=== PATIENT | female | born 1940 | race American Indian/Alaskan Native ===

== ENCOUNTER 2017-02-26 13:07 | Outpatient (CLI) | payer MEDICARE ==
--- NOTE | 2017-02-26 14:09 | XRay Report ---
Right shoulder 3 views: History: Pain. Findings: Generalized osteopenia. Mild arthritic changes of the a.c. joint and glenohumeral joint. No fracture dislocation or soft tissue calcification. Impression: Mild arthritic changes a.c. joint and glenohumeral joint.
== END 2017-02-26 13:08 | disposition home or self-care (01) ==
LOC: SPVIMAG 13:07
PROVIDERS: ATTEND Orthopaedic Surgery Sports Medicine
DX: M19.011 Primary osteoarthritis, right shoulder (principal); M85.88 Other specified disorders of bone density and structure, other site; M85.812 Other specified disorders of bone density and structure, left shoulder

== ENCOUNTER 2017-04-15 09:28 | Outpatient (CLI) | payer MEDICARE ==
--- NOTE | 2017-04-15 11:55 | Mammography Report ---
BILATERAL MAMMOGRAM: FINDINGS: The breast tissue is heterogeneously dense, which could obscure detection of small masses (approximately 50%-75% glandular). No mass, distortion, suspicious calcification, or skin change is seen. No significant change when compared to exams dating back to 2015. CAD was utilized. IMPRESSION: Negative mammogram. There is no mammographic evidence of malignancy. RECOMMENDATION: Follow-up per ACS guidelines. BI-RADS CATEGORY: 1 = Negative ACR BI-RADS MAMMOGRAPHIC CODES: 0 = Needs additional imaging evaluation; 1 = Negative; 2 = Benign; 3 = Probably benign; 4 = Suspicious; 5 = Malignant; 6 = Known biopsy-proven malignancy COMMENT: 1. Dense breast tissue, i.e., adenosis, fibrocystic changes, etc., may obscure an underlying neoplasm. 2. Approximately 10% of cancers are not detected with mammography. 3. A negative mammography report should not delay biopsy if a clinically suspicious mass is present. COMMENT: Patient follow-up letters are generated in [employer].
== END 2017-04-15 09:29 | disposition home or self-care (01) ==
LOC: MAMMO 09:28
PROVIDERS: ATTEND Family Medicine
DX: Z12.31 Encounter for screening mammogram for malignant neoplasm of breast (principal)
CPT/HCPCS: 77067; G0202

== ENCOUNTER 2017-05-31 09:30 | Outpatient (CLI) | payer MEDICARE ==
--- NOTE | 2017-06-03 08:17 | Magnetic Resonance Report ---
MRI UPPER EXTREMITY JOINT RIGHT WITHOUT CONTRAST HISTORY: Right shoulder pain and weakness. TECHNIQUE: Multisequence, multiplanar MRI with and without fat suppression was performed through the right shoulder. COMPARISON: Right shoulder films dated 02/26/17 FINDINGS: The horizontal segment of the long head of the biceps tendon demonstrates abnormal thickening and increased intrinsic signal. The tendon remains attached to the superior labrum with no evidence of SLAP lesion. A severe tendinosis or possibly a longitudinal tear is suspected. There is also suggestion of a tiny full-thickness tear in the distal anterior supraspinatus tendon at its attachment site on the proximal humerus. This appears to involve the rotator cuff interval. The remainder of the supraspinatus tendon is within normal limits. The infraspinatus, teres minor and subscapularis tendons are within normal limits. No gross labral defect. Mild to moderate osteoarthritic changes are identified at the glenohumeral joint and a.c. joint. A moderate acromial spur is identified. There is a small joint effusion and moderate fluid in the subacromial bursa, subdeltoid bursa and subscapular recess. The bone marrow signal is within normal limits. IMPRESSION: Severe tendinosis versus partial tear of the horizontal segment of the long head of the biceps tendon. Tiny rotator cuff interval tear is suspected. Osteoarthritis. Subacromial spur. Joint effusion and bursal fluid.
== END 2017-05-31 09:31 | disposition home or self-care (01) ==
LOC: MRI 09:30
PROVIDERS: ATTEND Orthopaedic Surgery Sports Medicine
DX: M19.011 Primary osteoarthritis, right shoulder (principal); M25.811 Other specified joint disorders, right shoulder

== ENCOUNTER 2018-06-03 07:25 | Outpatient (CLI) | payer MEDICARE ==
[2018-06-03 08:03] LABS: Alanine Aminotransferase 17 units/L (7-56); Albumin 4.5 g/dL (3.9-5); BUN/Creatinine Ratio 21; Blood Urea Nitrogen 19 mg/dL (7-17); Calcium 9.5 mg/dL (8.4-10.2); Hemolysis Index 46
--- NOTE | 2018-06-03 09:34 | Cat Scan Report ---
CTA CHEST: HISTORY: Chest pain, shortness of breath. COMPARISON: none. TECHNIQUE: Helical CT in 1.25mm intervals following IV contrast. Pulmonary embolus protocol. Sagittal and coronal reformatted images. Rotational MIP images. FINDINGS: Contrast bolus is satisfactory. No pulmonary embolus is identified. Thyroid gland: Normal. Tracheobronchial tree: Normal. Esophagus: Normal. Heart: Normal. Pericardium: Normal. 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 The aorta is within normal limits otherwise. Lung Hooper: Normal. Pleural Spaces: Normal. Musculoskeletal: Intact. Mild scoliosis is suspected. IMPRESSION: No evidence for pulmonary embolus. Aberrant origin of the right subclavian artery. Mild scoliosis.
--- NOTE | 2018-06-04 12:31 | Vascular Lab Report ---
FINAL REPORT EXAM: VL VENOUS DUPLEX LE BILAT HISTORY: Leg swelling and shortness of breath TECHNIQUE: Ultrasound examination of the right lower extremity venous system Ultrasound examination of the left lower extremity venous system PRIORS: None. FINDINGS: Right leg: Normal compressibility, vascular patency, and augmentation are present diffusely throughout the visua lized portion of the deep veins of the right leg. No abnormal intraluminal echoes are visualized to suggest thrombus. Peroneal vein not visualized Left leg: Normal compressibility, vascular patency, and augmentation are present diffusely throughout the visua lized portion of the deep veins of the left leg. No abnormal intraluminal echoes are visualized to s uggest thrombus. Peroneal vein not visualized IMPRESSION: No sonographic evidence of DVT in the right leg No sonographic evidence of DVT in the left leg
== END 2018-06-03 07:26 | disposition home or self-care (01) ==
LOC: CT 07:25
PROVIDERS: ATTEND Internal Medicine
DX: M79.89 Other specified soft tissue disorders (principal); R07.89 Other chest pain; R06.02 Shortness of breath; M41.84 Other forms of scoliosis, thoracic region
CPT/HCPCS: 36415; 71275; 80053; 83735; 84100; 93970; Q9967